=== PATIENT | female | born 1975 | race Caucasian/White ===

== ENCOUNTER → 2017-05-04 | Outpatient (CLI) | payer BC ==
[~2017-05-04] MED LIST: SERT50TA
[2017-05-04 18:13] LABS: URINE APPEARANCE CLEAR (CLEAR); URINE BILIRUBIN NEG (NEG); URINE COLOR YELLOW; URINE NITRITE NEG (NEG); URINE SPECIFIC GRAVITY 1.019 (1.000-1.030); UROBILINOGEN NEG (NEG)
[2017-05-04 18:21] LABS: MANUAL MICROSCOPIC REQUIRED? NO; REVIEW REQ? NO
== END | disposition home or self-care (01) ==
LOC: C.LABSPEC 17:26
PROVIDERS: ATTEND Physician Assistant
DX: N89.8 Other specified noninflammatory disorders of vagina (principal); R39.9 Unspecified symptoms and signs involving the genitourinary system

== ENCOUNTER → 2017-05-24 | Outpatient (CLI) | payer BC | END | disposition home or self-care (01) | LOC: C.PAPS 11:59 | PROVIDERS: ATTEND Physician Assistant | DX: Z01.419 Encounter for gynecological examination (general) (routine) without abnormal findings (principal); R87.616 Satisfactory cervical smear but lacking transformation zone ==

== ENCOUNTER → 2017-06-02 | Outpatient (CLI) | payer BC | END | disposition home or self-care (01) | LOC: C.LABSPEC 17:15 | PROVIDERS: ATTEND Urology | DX: R39.9 Unspecified symptoms and signs involving the genitourinary system (principal) ==

== ENCOUNTER → 2017-06-21 | Outpatient (CLI) | payer OTHER ==
[2017-06-21 17:23] LABS: ALBUMIN 3.7 gm/dl (3.4-5.0); ALT/SGPT 22 U/L (12-78); AST/SGOT 12 U/L (15-37); BLOOD UREA NITROGEN 11 mg/dl (7-18); CALCIUM 8.7 mg/dl (8.5-10.1); CARBON DIOXIDE 27 mmol/L (21-32); GLUCOSE 77 mg/dl (70-99); POTASSIUM 3.7 mmol/L (3.5-5.1); SODIUM 136 mmol/L (136-145)
[2017-06-21 17:26] LABS: ALKALINE PHOSPHATASE 81 U/L (45-117); TOTAL PROTEIN 7.5 gm/dl (6.4-8.2)
== END | disposition home or self-care (01) ==
LOC: C.LAB 16:16
PROVIDERS: ATTEND Urology
DX: R39.9 Unspecified symptoms and signs involving the genitourinary system (principal)

== ENCOUNTER → 2017-06-27 | Outpatient (CLI) | payer OTHER ==
[~2017-06-27] MED LIST changes: +OPTIRAY 320 IV PRN
--- NOTE | 2017-06-27 08:04 | DIAGNOSTIC IMAGING REPORT ---
CT OF THE ABDOMEN AND PELVIS WITH AND WITHOUT CONTRAST HEMATURIA PROTOCOL CLINICAL HISTORY: Hematuria. Urinary symptoms. COMPARISON STUDY: None. TECHNIQUE: Unenhanced and split bolus phase imaging of the abdomen and pelvis was performed. Injection of 119 cc Optiray 320 IV was uneventful. A dose lowering technique was utilized adhering to the principles of ALARA. CT DOSE: 1263.44 mGycm FINDINGS: Liver morphology is normal. Note is made of a 1.3 cm right hepatic lobe cyst. Subcentimeter hepatic lesions are too small to characterize but likely reflect cysts as well. The spleen, adrenal glands and pancreas are normal. There is no biliary or pancreatic ductal dilatation. There is a splenule. Caliber and wall thickness of small and large bowel are normal. There are numerous small bilateral renal calculi that measure up to 4 mm, more numerous on the left. There is no hydronephrosis. The course of the ureters is difficult to follow on this exam but pelvic calcifications likely reflect phleboliths. No definite ureteral calculi are identified. No bladder abnormality is identified although evaluation is suboptimal given suboptimal distention of the bladder. A 2 cm cyst within the upper pole of the right kidney is noted. There are several subcentimeter bilateral renal lesions which likely reflect cysts as well. There is no abdominal or pelvic lymphadenopathy. A rim-enhancing left adnexal lesion measuring 2 cm likely reflects a corpus luteal cyst. A small amount of fluid within the pelvis. There is no lymphadenopathy. No suspicious osseous lesions are identified. IMPRESSION: 1. Bilateral nephrolithiasis. No ureteral calculi or hydronephrosis. 2. No upper tract urothelial lesions. 3. Several renal cysts. 4. 2 cm rim-enhancing left adnexal lesion which likely reflects a corpus luteal cyst. Small amount of fluid within the pelvis. Electronically signed by: Earl Chaves M.D. 06/27/2017 8:02 AM Dictated Date/Time: 06/27/2017 7:22 AM
== END | disposition home or self-care (01) ==
LOC: C.CTS 06:42
PROVIDERS: ATTEND Urology
DX: R31.29 Other microscopic hematuria (principal); R39.9 Unspecified symptoms and signs involving the genitourinary system

== ENCOUNTER → 2018-01-10 | Outpatient (CLI) | payer OTHER ==
[~2018-01-10] MED LIST changes: -OPTIRAY 320 IV PRN
--- NOTE | 2018-01-10 14:44 | DIAGNOSTIC IMAGING REPORT ---
[facility] CLINICAL HISTORY: KIDNEY STONES COMPARISON STUDY: CT scan dated 06/27/2017 FINDINGS: The renal shadows are partially obscured by overlying bowel gas and fecal material. Multiple granular calcifications project over the left kidney consistent with calculi. Pelvic basin calcifications while nonspecific likely represent phleboliths. There is no pathologic bowel dilatation. IMPRESSION: Left-sided nephrolithiasis. The previously described right renal calculi are not definitively visualized on conventional radiographic imaging Electronically signed by: Marcel Copeland M.D. 01/10/2018 2:42 PM Dictated Date/Time: 01/10/2018 2:41 PM
== END | disposition home or self-care (01) ==
LOC: C.RADBC 13:13
PROVIDERS: ATTEND Urology
DX: N20.0 Calculus of kidney (principal)

== ENCOUNTER 2022-10-03 14:44 | Observation (INO) ==
[2022-10-03 15:42] LABS: Alanine Aminotransferase 21 U/L (7-52); BUN Creatinine Ratio 15.2 (10-20); Bilirubin,Total 0.5 mg/dl (0.2-1.0); Blood Urea Nitrogen 12 mg/dl (6-23); Calcium 9.4 mg/dl (8.6-10.3); Carbon Dioxide 27 mmol/L (21-32); Chloride 106 mmol/L (98-107); Creatinine Clr Calc Pharmacy 75.2 ml/min; Est GFR (African American) 102.6 ml/min; Est GFR (Non-African American) 88.5 ml/min; Glucose 99 mg/dl (70-99(Fasting)); Total Protein 7.5 gm/dl (6.0-8.3); Troponin I High Sensitivity 2.7 pg/ml (0-14)
--- NOTE | 2022-10-03 17:36 | XRay Report ---
XR chest 1V not portable HISTORY: 47 years-old Female Chest pain, nonspecific acute chest pain with shortness of breath COMPARISON: Chest radiograph 02/02/2022 TECHNIQUE: AP view of the chest FINDINGS: Left breast biopsy clip. Cardiomediastinal and hilar silhouettes are within normal limits. No pneumot horax, pleural effusion, airspace consolidation or pulmonary edema. Bones appear grossly intact. IMPRESSION: No acute process. ACT 112: Negative or not required by law. The above report was generated using voice recognition software. It may contain grammatical, syntax o r spelling errors. Electronically signed by: Jose Casanova M.D. 10/03/2022 5:35 PM
[2022-10-03 17:48] LABS: Partial Thromboplastin Ratio 0.9; Partial Thromboplastin Time 25.1 Seconds (21.0-31.0); Prothrombin Time 10.9 Seconds (9.0-12.0)
[2022-10-03 17:53] LABS: Albumin Globulin Ratio 1.5 (0.9-2); Albumin Level 4.5 gm/dl (3.4-5.0); Alkaline Phosphatase 58 U/L (34-104); Globulin 3.1 gm/dl (2.5-4.0); Sodium 139 mmol/L (136-145); Total Protein 7.6 gm/dl (6.0-8.3)
--- NOTE | 2022-10-03 17:56 | Electrocardiogram Report ---
Test Reason : Blood Pressure : / mmHG Vent. Rate : 093 BPM Atrial Rate : 093 BPM P-R Int : 134 ms QRS Dur : 072 ms QT Int : 330 ms P-R-T Axes : 061 045 055 degrees QTc Int : 410 ms Normal sinus rhythm Nonspecific ST abnormality Abnormal ECG When compared with ECG of 02-FEB-2022 22:23, No significant change was found Confirmed by Alessandro Patten ([id number]) on 10/03/2022 5:56:19 PM Referred By: Confirmed By:Tom Patten
[2022-10-03 18:00] LABS: Basophils # (auto) 0.04 K/uL (0-0.2); Basophils % (auto) 0.5 %; Eosinophils # (auto) 0.11 K/uL (0-0.50); Eosinophils % (auto) 1.4 %; Hematocrit (blood only) 44.6 % (37.0-47.0); Hemoglobin 14.8 g/dl (12.0-16.0); Immature Granulocytes # (auto) 0.02 K/uL (0.01-0.20); Immature Granulocytes % (auto) 0.3 %; Lymphocytes # (auto) 1.55 K/uL (1.2-3.4); Lymphocytes % (auto) 20.2 %; Mean Corpuscular Hemoglobin 30.8 pg (25.0-34.0); Mean Corpuscular Hgb Conc 33.2 g/dL (32.0-36.0); Mean Corpuscular Volume 92.7 fL (80.0-100.0); Mean Platelet Volume 9.9 fL (9.4-12.4); Monocytes # (auto) 0.57 K/uL (0.11-0.59); Monocytes % (auto) 7.4 %; Neutrophils # (auto) 5.38 K/uL (1.40-6.50); Neutrophils % (auto) 70.2 %; Platelet Count 281 K/uL (130-400); RDW Coefficient of Variation 11.8 % (11.5-14.5); RDW Standard Deviation 39.8 fL (36.4-46.3); Red Blood Count 4.81 M/uL (4.20-5.40); White Blood Count 7.67 K/ul (4.8-10.8)
--- NOTE | 2022-10-03 18:00 | Emergency Department Note ---
History of Present Illness General Chief complaint: Arrhythmia/Palpitations Stated complaint: CHEST TIGHTNESS,HEART PALPITATIONS,LIGHTHEADED Time Seen by Provider: 10/03/22 17:41 Source: patient, family ( who is at the bedside), RN notes reviewed and old records reviewed Mode of arrival: ambulatory Limitations: no limitations History of Present Illness Maximum Pain Intensity: 6 This patient is a 47-year-old female who comes in after having chest pain. She said is been going on since around 3:00 in the morning he said it comes and goes but was there all day persistently she describes as a tightness. No radiation. She felt a little lightheaded no shortness of breath no pain with movement or palpation. No nausea vomiting out to makes it better or worse no fall or trauma. No blood or melena stool. She said over the last couple days her hearts been irregular at times she does have a fitness watch and said has been up to 100. No history of similar. She has not had no significant stress lately. No fever or chills. Home Medications Medication Instructions Recorded Confirmed Type acetaminophen 325 mg capsule 325 mg PO .TAKE CAPSULE PRN PRN 01/06/22 10/03/22 History (Tylenol) Pain ibuprofen 200 mg tablet (Advil) 200 mg PO QID PRN Pain 01/06/22 10/03/22 History cholecalciferol (vitamin D3) 25 25 mcg PO QAM 03/11/22 10/03/22 History mcg (1,000 unit) chewable tablet (Vitamin D3) ferrous sulfate 325 mg (65 mg 325 mg PO QAM 03/11/22 10/03/22 History iron) tablet omega 8-hur-wal-fish oil 1,000 mg 1 cap PO QAM 03/11/22 10/03/22 History (120 mg-180 mg) capsule (Fish Oil) vitamin B complex 1 tab PO QAM 03/11/22 10/03/22 History oxybutynin chloride 5 mg 5 mg PO DAILY #7 tabs 08/09/22 10/03/22 Rx tablet,extended release 24 hr (Ditropan XL) tamsulosin 0.4 mg capsule (Flomax) 0.4 mg PO DAILY #7 caps 08/09/22 10/03/22 Rx oxycodone 5 mg tablet 5 mg PO Q6H PRN pain #10 tabs 08/17/22 10/03/22 Rx buspirone 7.5 mg tablet 7.5 mg PO BID 10/03/22 10/03/22 History Allergies Allergy/AdvReac Type Severity Reaction Status Date / Time No Known Allergies Allergy Unknown Verified 10/03/22 19:16 Past Med/Surg History Medical History High cholesterol no meds History of COVID-19 October 21, 2021 > home test > fever, sore throat, aches > thinks neuropathy in feet is residual effect, no other issues Low iron Migraines Nephrolithiasis present Neuropathy feet Surgical History History of breast biopsy benign History of colonoscopy with polypectomy History of dilatation and curettage 03/18/2022 @ [facility] Hx of L[place] teeth extracted Family History Father Prostate cancer Cardiac disorder Hypercholesteremia Hypertension Heart disease Colorectal cancer Mother Osteoporosis Denies family history of Ovarian cancer Breast cancer Social History Smoking Status: Never smoker Second Hand Exposure: No; Hx Alcohol Use: Yes Alcohol type: wine and hard liquor Hx Substance Use: No Preferred Language: Malaysian Communication Ability: Effective Pharmaceutical Scientist Required: No Beliefs That Will Affect Care: None marital status: Current Living Situation: Spouse current occupational status: employed Feels Safe at Home: Yes Assistive Devices: None Review of Systems A total of 10 systems reviewed and were otherwise negative Physical Exam Vital Signs Vital Signs - 24 hr 10/03/22 14:44 10/03/22 17:00 10/03/22 17:09 Temperature 36.5 C Temperature Source Temporal Artery Scan Pulse Rate 102 H 81 Pulse Rate [Left Finger] 87 Pulse Rhythm [Left Finger] Regular Pulse Strength [Left Finger] Normal Respiratory Rate 20 20 Respiratory Effort / Characteristics Non-Labored Spontaneous Non-Labored Spontaneous Respiratory Depth Normal Normal Respiratory Pattern Regular Blood Pressure 158/91 H Blood Pressure [Left Arm] 143/84 H Blood Pressure Mean 113 Blood Pressure Mean [Left Arm] 103 Blood Pressure Position [Left Arm] Sitting Pulse Oximetry 95 97 Oxygen Delivery Method Room Air Room Air Sepsis New/Unexplained Change in Mental Status No Sepsis Action Taken by Nursing No Action Required 10/03/22 19:55 10/03/22 22:00 10/03/22 20:53 Temperature Temperature Source Pulse Rate 78 Pulse Rate [Left Finger] 79 82 Pulse Rhythm [Left Finger] Pulse Strength [Left Finger] Respiratory Rate 18 18 Respiratory Effort / Characteristics Respiratory Depth Respiratory Pattern Blood Pressure Blood Pressure [Left Arm] 119/80 122/79 Blood Pressure Mean Blood Pressure Mean [Left Arm] 93 93 Blood Pressure Position [Left Arm] Pulse Oximetry 96 96 Oxygen Delivery Method Room Air Room Air Sepsis New/Unexplained Change in Mental Status Sepsis Action Taken by Nursing General: Well developed well nourished [id number] middle-age female who in no acute distress, breathing comfortably on room air. Normal speech HEENT: Normal cephalic atraumatic. Pupils are equal round and reactive to li ght. Extraocular movements are intact. Oropharynx is pink with moist mucous membranes. No swelling of the mouth lips or tongue. Neck: Supple with a midline trachea. No meningeal signs or stiffness, no JVD or bruits. No Stridor. Chest: Clear to auscultation bilaterally. No wheezes or rhonchi. No increased work of breathing. Heart: Regular rate and rhythm without murmurs or gallops. Abdomen: Soft nontender, nondistended without rebound guarding or rigidity. Extremities: No cyanosis clubbing or edema. No calf tenderness or assymetry Spine/Back. Non tender to palpation. No CVA tenderness Skin: Good turgor without rashes. Neurologic exam: Cranial nerves two through 12 are intact. Motor and sensation are intact and symmetrical throughout. Procedures Free Text Procedures The patient was placed in observation status at 1845 on 10/03/22 for chest pain during the time in observation, the patient was frequently reassessed and received EKG x2, continuous more cardiac monitoring troponin on Final reassessment the patient had 2 nonischemic EKGs and 2 negative troponins but was still having chest pain she and she does have family history. I did consult the hospitalist for inpatient admission/observation. A total observation time of 3 hours and 47 minutes. Course Administered Medications Discontinued Medications Acetaminophen (Acetaminophen 500 Mg Tab) 1,000 mg PO NOW STA Stop: 10/03/22 22:38 Last Admin: 10/03/22 22:54 Dose: 1,000 mg Documented By: ELISA Al Hydrox/Mg Hydrox/Simethicone (Gi Cocktail Ed Use) 1 dose PO ONE ONE Stop: 10/03/22 22:38 Last Admin: 10/03/22 22:54 Dose: 1 dose Documented By: ELISA Aspirin (Aspirin 81 Mg Chew) 324 mg PO NOW STA Stop: 10/03/22 21:28 Last Admin: 10/03/22 21:50 Dose: 324 mg Documented By: ELISA Medical Decision Making Differential Diagnosis Acute coronary syndrome, arrhythmia, pneumothorax, electrolyte or metabolic abnormality, pulmonary vascular disease, infection, anxiety Medical Records Attestation: I reviewed the patient's medical records. Home Medications Current Medication List: was personally reviewed by me Laboratory Data 10/03/22 17:04 10/03/22 17:04 Lab Results 10/03/22 10/03/22 10/03/22 Range/Units 15:00 15:00 15:00 WBC Cancelled RBC Cancelled Hgb Cancelled Hct Cancelled MCV Cancelled MCH Cancelled MCHC Cancelled RDW Std Deviation Cancelled RDW Coeff of Paulette Cancelled Plt Count Cancelled MPV Cancelled Immature Gran % (Auto) Cancelled Neut % (Auto) Cancelled Lymph % (Auto) Cancelled [place] % (Auto) Cancelled Eos % (Auto) Cancelled Baso % (Auto) Cancelled Neut # (Auto) Cancelled Lymph # (Auto) Cancelled [place] # (Auto) Cancelled Eos # (Auto) Cancelled Baso # (Auto) Cancelled Immature Gran # (Auto) Cancelled Absolute Nucleated RBC Cancelled Nucleated RBC % (auto) Cancelled Neutrophils % (Manual) Cancelled Band Neutrophils % Cancelled Lymphocytes % (Manual) Cancelled Prolymphocyte % Cancelled Reactive Lymphs % (Man) Cancelled Monocytes % (Manual) Cancelled Eosinophils % (Manual) Cancelled Basophils % (Manual) Cancelled Metamyelocytes % (Man) Cancelled Myelocytes % (Man) Cancelled Promyelocytes % (Man) Cancelled Blast Cells % (Manual) Cancelled Plasma Cell % (Manual) Cancelled Other Cells % Cancelled Nucleated RBC % Cancelled Neutrophils # (Manual) Cancelled Band Neutrophils # Cancelled Total Absolute Neuts Cancelled Lymphocytes # (Manual) Cancelled Prolymphocyte # Cancelled Reactive Lymphs # Cancelled Total Abs Lymphocytes Cancelled Monocytes # (Manual) Cancelled Eosinophils # (Manual) Cancelled Basophils # (Manual) Cancelled Metamyelocytes # (Man) Cancelled Myelocytes # (Manual) Cancelled Promyelocytes # (Man) Cancelled Blast Cells # (Man) Cancelled Plasma Cell # (Manual) Cancelled Other Cells # Cancelled Nucleated RBCs # (Man) Cancelled Hypersegmented Neuts Cancelled Hyposegmented Neuts Cancelled Hypogranular Neuts Cancelled Large Granular Lymphs Cancelled # Lrg Granular Lymphs Cancelled Hairy Cells Cancelled Smudge Cells Cancelled Toxic Granulation Cancelled Toxic Vacuolation Cancelled Dohle Bodies Cancelled Jessica Rods Cancelled Platelet Estimate Cancelled Hypogranular Platelets Cancelled Giant Platelets Cancelled Platelet Satelliting Cancelled RBC Morphology Cancelled Polychromasia Cancelled Hypochromasia Cancelled Poikilocytosis Cancelled Basophilic Stippling Cancelled Anisocytosis Cancelled Microcytosis Cancelled Macrocytosis Cancelled Spherocytes Cancelled Pappenheimer Bodies Cancelled Sickle Cells Cancelled Target Cells Cancelled Tear Drop Cells Cancelled Ovalocytes Cancelled Stomatocytes Cancelled Jimenez-Maricao Bodies Cancelled Echinocytes Cancelled Acanthocytes (Spur) Cancelled Rouleaux Cancelled RBC Agglutinates Cancelled Schistocytes Cancelled Sezary Cell Cancelled PT Cancelled INR Cancelled APTT Cancelled PTT Ratio Cancelled D-Dimer Sodium TNP Potassium TNP Chloride 106 (98-107) mmol/L Carbon Dioxide 27 (21-32) mmol/L Anion Gap TNP BUN 12 (6-23) mg/dl Creatinine 0.79 (0.6-1.2) mg/dl Est Cr Clr Drug Dosing 75.2 ml/min Est GFR ( Amer) 102.6 ml/min Est GFR (Non-Af Amer) 88.5 ml/min BUN/Creatinine Ratio 15.2 (10-20) Glucose 99 (70-99(Fasting)) mg/dl Calcium 9.4 (8.6-10.3) mg/dl Magnesium (1.7-2.4) mg/dl Total Bilirubin 0.5 (0.2-1.0) mg/dl AST TNP ALT 21 (7-52) U/L Alkaline Phosphatase TNP Troponin I High Sens 2.7 (0-14) pg/ml Total Protein 7.5 (6.0-8.3) gm/dl Albumin TNP Globulin TNP Albumin/Globulin Ratio TNP TSH (0.300-4.500) uIu/ml Blood Parasites ID Cancelled 10/03/22 10/03/22 10/03/22 Range/Units 15:00 17:04 17:04 WBC RBC Hgb Hct MCV MCH MCHC RDW Std Deviation RDW Coeff of Paulette Plt Count MPV Immature Gran % (Auto) Neut % (Auto) Lymph % (Auto) [place] % (Auto) Eos % (Auto) Baso % (Auto) Neut # (Auto) Lymph # (Auto) [place] # (Auto) Eos # (Auto) Baso # (Auto) Immature Gran # (Auto) Absolute Nucleated RBC Nucleated RBC % (auto) Neutrophils % (Manual) Band Neutrophils % Lymphocytes % (Manual) Prolymphocyte % Reactive Lymphs % (Man) Monocytes % (Manual) Eosinophils % (Manual) Basophils % (Manual) Metamyelocytes % (Man) Myelocytes % (Man) Promyelocytes % (Man) Blast Cells % (Manual) Plasma Cell % (Manual) Other Cells % Nucleated RBC % Neutrophils # (Manual) Band Neutrophils # Total Absolute Neuts Lymphocytes # (Manual) Prolymphocyte # Reactive Lymphs # Total Abs Lymphocytes Monocytes # (Manual) Eosinophils # (Manual) Basophils # (Manual) Metamyelocytes # (Man) Myelocytes # (Manual) Promyelocytes # (Man) Blast Cells # (Man) Plasma Cell # (Manual) Other Cells # Nucleated RBCs # (Man) Hypersegmented Neuts Hyposegmented Neuts Hypogranular Neuts Large Granular Lymphs # Lrg Granular Lymphs Hairy Cells Smudge Cells Toxic Granulation Toxic Vacuolation Dohle Bodies Jessica Rods Platelet Estimate Hypogranular Platelets Giant Platelets Platelet Satelliting RBC Morphology Polychromasia Hypochromasia Poikilocytosis Basophilic Stippling Anisocytosis Microcytosis Macrocytosis Spherocytes Pappenheimer Bodies Sickle Cells Target Cells Tear Drop Cells Ovalocytes Stomatocytes Jimenez-Maricao Bodies Echinocytes Acanthocytes (Spur) Rouleaux RBC Agglutinates Schistocytes Sezary Cell PT 10.9 INR 1.0 APTT 25.1 PTT Ratio 0.9 D-Dimer Sodium 139 Potassium TNP Chloride (98-107) mmol/L Carbon Dioxide (21-32) mmol/L Anion Gap BUN (6-23) mg/dl Creatinine (0.6-1.2) mg/dl Est Cr Clr Drug Dosing ml/min Est GFR ( Amer) ml/min Est GFR (Non-Af Amer) ml/min BUN/Creatinine Ratio (10-20) Glucose (70-99(Fasting)) mg/dl Calcium (8.6-10.3) mg/dl Magnesium (1.7-2.4) mg/dl Total Bilirubin (0.2-1.0) mg/dl AST TNP ALT (7-52) U/L Alkaline Phosphatase 58 Troponin I High Sens (0-14) pg/ml Total Protein 7.6 (6.0-8.3) gm/dl Albumin 4.5 Globulin 3.1 Albumin/Globulin Ratio 1.5 TSH 1.081 (0.300-4.500) uIu/ml Blood Parasites ID 10/03/22 10/03/22 10/03/22 Range/Units 17:04 18:45 21:53 WBC 7.67 RBC 4.81 Hgb 14.8 Hct 44.6 MCV 92.7 MCH 30.8 MCHC 33.2 RDW Std Deviation 39.8 RDW Coeff of Paulette 11.8 Plt Count 281 MPV 9.9 Immature Gran % (Auto) 0.3 Neut % (Auto) 70.2 Lymph % (Auto) 20.2 [place] % (Auto) 7.4 Eos % (Auto) 1.4 Baso % (Auto) 0.5 Neut # (Auto) 5.38 Lymph # (Auto) 1.55 [place] # (Auto) 0.57 Eos # (Auto) 0.11 Baso # (Auto) 0.04 Immature Gran # (Auto) 0.02 Absolute Nucleated RBC Nucleated RBC % (auto) Neutrophils % (Manual) Band Neutrophils % Lymphocytes % (Manual) Prolymphocyte % Reactive Lymphs % (Man) Monocytes % (Manual) Eosinophils % (Manual) Basophils % (Manual) Metamyelocytes % (Man) Myelocytes % (Man) Promyelocytes % (Man) Blast Cells % (Manual) Plasma Cell % (Manual) Other Cells % Nucleated RBC % Neutrophils # (Manual) Band Neutrophils # Total Absolute Neuts Lymphocytes # (Manual) Prolymphocyte # Reactive Lymphs # Total Abs Lymphocytes Monocytes # (Manual) Eosinophils # (Manual) Basophils # (Manual) Metamyelocytes # (Man) Myelocytes # (Manual) Promyelocytes # (Man) Blast Cells # (Man) Plasma Cell # (Manual) Other Cells # Nucleated RBCs # (Man) Hypersegmented Neuts Hyposegmented Neuts Hypogranular Neuts Large Granular Lymphs # Lrg Granular Lymphs Hairy Cells Smudge Cells Toxic Granulation Toxic Vacuolation Dohle Bodies Jessica Rods Platelet Estimate Hypogranular Platelets Giant Platelets Platelet Satelliting RBC Morphology Polychromasia Hypochromasia Poikilocytosis Basophilic Stippling Anisocytosis Microcytosis Macrocytosis Spherocytes Pappenheimer Bodies Sickle Cells Target Cells Tear Drop Cells Ovalocytes Stomatocytes Jimenez-Maricao Bodies Echinocytes Acanthocytes (Spur) Rouleaux RBC Agglutinates Schistocytes Sezary Cell PT INR APTT PTT Ratio D-Dimer Cancelled Sodium Potassium 3.7 Chloride (98-107) mmol/L Carbon Dioxide (21-32) mmol/L Anion Gap BUN (6-23) mg/dl Creatinine (0.6-1.2) mg/dl Est Cr Clr Drug Dosing ml/min Est GFR ( Amer) ml/min Est GFR (Non-Af Amer) ml/min BUN/Creatinine Ratio (10-20) Glucose (70-99(Fasting)) mg/dl Calcium (8.6-10.3) mg/dl Magnesium 2.0 (1.7-2.4) mg/dl Total Bilirubin (0.2-1.0) mg/dl AST 14 ALT (7-52) U/L Alkaline Phosphatase Troponin I High Sens 2.8 (0-14) pg/ml Total Protein (6.0-8.3) gm/dl Albumin Globulin Albumin/Globulin Ratio TSH (0.300-4.500) uIu/ml Blood Parasites ID Imaging Data Attestation: I personally reviewed and interpreted this imaging study as follows: My Impression: Chest x-rayno acute infiltrate, failure, pneumothorax seen Radiologist's Impression: Chest X-Ray 10/03/22 14:50 XR chest 1V not portable HISTORY: 47 years-old Female Chest pain, nonspecific acute chest pain with shortness of breath COMPARISON: Chest radiograph 02/02/2022 TECHNIQUE: AP view of the chest FINDINGS: Left breast biopsy clip. Cardiomediastinal and hilar silhouettes are within normal limits. No pneumothorax, pleural effusion, airspace consolidation or pulmonary edema. Bones appear grossly intact. IMPRESSION: No acute process. ACT 112: Negative or not required by law. The above report was generated using voice recognition software. It may contain grammatical, syntax or spelling errors. Electronically signed by: Jose Casanova M.D. 10/03/2022 5:35 PM ECG Data Attestation: I personally reviewed and interpreted this ECG as follows: Indication: + chest pain Rate (beats per minute): 93 Rhythm: + normal sinus ECG Intervals/blocks: + Normal QRS and + Normal QT ECG [place]: + Normal ECG ST segments: + Nonspecific ST abnormalities ECG Findings: no PACs or no PVCs Comparison ECG Date: from (02/02/22) Change: no significant change Additional Comments: EKG #2: Normal sinus rhythm with a rate of 75 no acute ischemic changes no significant change compared EKG #1. MDM Narrative This patient is a 47-year-old female comes in after having chest pain since earlier today. She does have a history of increased cholesterol and her father had a CABG however not prematurely. Her symptoms have gone all day and despite that she has normal troponin and her EKG shows no definite ischemic changes. She was placed in cardiac observation/ED observation. IV access was established and blood work was obtained. Chest x-ray shows no acute infiltrate, failure, pneumothorax. The patient had 2 nonischemic EKGs and no significant arrhythmias while in the ED she had 2 negative troponins the rest of her labs were essentially unremarkable. She seems to be doing better however when I checked on her she says she still does not feel well she feels like she is a fullness in her chest she has no GI symptoms, I did give her an aspirin. I do think she should have further work-up potentially as an inpatient of consult with Dr. Chnio who will be admitting/observing her I also added a D-dimer and COVID test ed her as well. She was initially tachycardic but it did slow down to normal sinus rhythm while she was here Continuous cardiac monitoring: Orders placed in EMR for continuous cardiac monitoring: Upon my interpretation, she was noted to be in normal sinus rhythm with a rate of 90 Impression & Plan Chest pain, Lab test negative for COVID-19 virus, Family history of coronary artery disease, Palpitations Discharge Plan Visit Data Chief Complaint: Arrhythmia/Palpitations Stated Complaint: CHEST TIGHTNESS,HEART PALPITATIONS,LIGHTHEADED ED Provider: Raji Jovel Discharge Problem: Chest pain, Lab test negative for COVID-19 virus, Family history of coronary artery disease, Palpitations Forms Stand Alone Forms: [facility] Prescriptions Prescriptions: No Action acetaminophen [Tylenol] 325 mg capsule 325 mg PO .TAKE CAPSULE PRN PRN (Reason: Pain) ibuprofen [Advil] 200 mg tablet 200 mg PO QID PRN (Reason: Pain) vitamin B complex Tablet Extended Release 1 tab PO QAM ferrous sulfate 325 mg (65 mg iron) Tablet 325 mg PO QAM cholecalciferol (vitamin D3) [Vitamin D3] 25 mcg (1,000 unit) Tablet,Chewable 25 mcg PO QAM omega 1-dug-pge-fish oil [Fish Oil] 1,000 mg (120 mg-180 mg) Capsule 1 cap PO QAM tamsulosin [Flomax] 0.4 mg capsule 0.4 mg PO DAILY Qty: 7 0RF oxybutynin chloride [Ditropan XL] 5 mg tablet extended release 24hr 5 mg PO DAILY Qty: 7 0RF oxycodone 5 mg tablet 5 mg PO Q6H PRN (Reason: pain) Qty: 10 0RF buspirone 7.5 mg tablet 7.5 mg PO BID Referrals Referrals: Sana Amato DO [Primary Care Provider] -
[2022-10-03 19:24] LABS: Potassium 3.7 mmol/L (3.5-5.1)
[2022-10-03 19:31] LABS: Troponin I High Sensitivity 2.8 pg/ml (0-14)
[2022-10-03] MEDS ORDERED: ASPIRIN 81 MG CHEW PO STA (21:27)
[2022-10-03] MEDS ORDERED: GI COCKTAIL ED USE PO ONE (22:37)
[2022-10-03] MEDS ORDERED: ACETAMINOPHEN 500 MG TAB PO STA (22:37)
--- NOTE | 2022-10-03 22:50 | History & Physical Report ---
Date of Service October 03, 2022 Assessment & Plan (1) Chest pain: Plan: 47yo female with history of HLP presenting with substernal chest discomfort and palpitations. No known CAD or arrhythmia. Troponin x 2 unremarkable. EKG with no acute ischemic changes. Electrolytes within normal limits. TSH and Magnesium PENDING. Do not strongly suspect ACS or cardiac etiology at this time. Patient voices frustration with the duration of her symptoms and is apprehensive about returning home to continue an outpatient workup. -Observation to medical with telemetry -Check TSH and Magnesium -Check 2D echo in AM -GI Cocktail x 1 -Tylenol PRN pain (2) Palpitations: Plan: Etiology unclear. Patient in NSR on EKG x 2. Ectopic beats appreciated on physical exam. -Telemetry monitoring -Monitor electrolytes -Check 2D echo F/E/N- Heplock. Electrolytes WNL. Regular diet as tolerated Ppx - Low risk for DVT Code - Full Dispo - Observation to medical with telemetry History of Present Illness Chief Complaint: Palpitations and chest tightness Primary Care Provider: DO Jaylyn Cheema Luis Armando is a 47-year-old female with history of hyperlipidemia, low iron, migraines presenting with 1 day of substernal chest tightness and palpitations. Patient reports feeling intermittent palpitations in the past but they have never been very bothersome. Over the last several days she has had difficulty falling asleep. She also notes that her resting heart rate has been higher than usual (in the 70s to 90s rather than the 60s. This is per her wrist monitor). This morning 10/03/2022 patient woke from sleep with substernal chest discomfort. She also reports feeling more intense palpitations at that time. The chest tightness has occurred intermittently throughout the day. It is substernal with radiation through to her back. She has had occasional lightheadedness. No radiation to the arm or jaw. No shortness of breath, diaphoresis, nausea, syncope. Patient reports she is not very active at baseline. She walks in her neighborhood several times per week. She is able to climb stairs without difficulty. She denies exertional symptoms of chest pain or dyspnea. She has no known cardiac disease. No history of arrhythmia. She has never had a stress test or cardiac catheterization. In the ER she is afebrile, hemodynamically stable. Heart rate = 82, normal sinus ER course: Aspirin 324 mg GI cocktail ordered (not yet given) Tylenol 1 g ordered (not yet given) Allergies Allergy/AdvReac Type Severity Reaction Status Date / Time No Known Allergies Allergy Unknown Verified 10/03/22 19:16 Home Medications Medication Instructions Recorded Confirmed Type acetaminophen 325 mg capsule 325 mg PO .TAKE CAPSULE PRN PRN 01/06/22 10/03/22 History (Tylenol) Pain ibuprofen 200 mg tablet (Advil) 200 mg PO QID PRN Pain 01/06/22 10/03/22 History cholecalciferol (vitamin D3) 25 25 mcg PO QAM 03/11/22 10/03/22 History mcg (1,000 unit) chewable tablet (Vitamin D3) ferrous sulfate 325 mg (65 mg 325 mg PO QAM 03/11/22 10/03/22 History iron) tablet omega 8-bif-xro-fish oil 1,000 mg 1 cap PO QAM 03/11/22 10/03/22 History (120 mg-180 mg) capsule (Fish Oil) vitamin B complex 1 tab PO QAM 03/11/22 10/03/22 History oxybutynin chloride 5 mg 5 mg PO DAILY #7 tabs 08/09/22 10/03/22 Rx tablet,extended release 24 hr (Ditropan XL) tamsulosin 0.4 mg capsule (Flomax) 0.4 mg PO DAILY #7 caps 08/09/22 10/03/22 Rx oxycodone 5 mg tablet 5 mg PO Q6H PRN pain #10 tabs 08/17/22 10/03/22 Rx buspirone 7.5 mg tablet 7.5 mg PO BID 10/03/22 10/03/22 History Past Med/Surg History Medical History High cholesterol no meds History of COVID-19 October 21, 2021 > home test > fever, sore throat, aches > thinks neuropathy in feet is residual effect, no other issues Low iron Migraines Nephrolithiasis present Neuropathy feet Surgical History History of breast biopsy benign History of colonoscopy with polypectomy History of dilatation and curettage 03/18/2022 @ [facility] Hx of LASIK [place] teeth extracted Family History Father Prostate cancer Cardiac disorder Hypercholesteremia Hypertension Heart disease Colorectal cancer Mother Osteoporosis Denies family history of Ovarian cancer Breast cancer Social History Smoking Status: Never smoker Second Hand Exposure: No; Hx Alcohol Use: Yes Alcohol type: wine and hard liquor Hx Substance Use: No Preferred Language: Kazakh Communication Ability: Effective Set O Type Operator Required: No Beliefs That Will Affect Care: None marital status: Current Living Situation: Spouse current occupational status: employed Feels Safe at Home: Yes Assistive Devices: None Review of Systems Review of Systems: All systems reviewed & are unremarkable except as noted in HPI & below Physical Exam Physical Exam: General: patient resting comfortably, NAD, non-toxic in appearance, AA&O x 4, Anxious in appearance Skin: warm, dry, intact, no rashes or lesions HEENT: NC/AT, PERRL, EOMI, anicteric sclera, conjunctiva without injection, external ear normal to inspection and nontender, nares patent, moist mucus membranes, dentition intact, no oropharyngeal lesions, neck supple, trachea midline, no LAD, no thyromegaly, no JVD Heart: +S1/S2, regular with occasional ectopy, no m/r/g, no reproducible chest wall pain Lungs: equal air entry bilaterally, no rales/rhonchi/wheezes Abd: +BS, soft, NT/ND, no masses/organomegaly/ascites Ext: warm, 2+ pulses in UE/LE bilaterally, no clubbing/cyanosis or edema Neuro: nonfocal, patient AA&O x 4, speech intact, no facial droop, moving all extremities on command with equal strength 5/5 Results & Data Results & Data Vital Signs (Past 12 Hours) Vital Signs Temp Pulse Pulse Resp BP BP Pulse Ox 10/03/22 20:53 78 10/03/22 22:00 82 18 122/79 96 10/03/22 19:55 79 18 119/80 96 10/03/22 17:09 81 10/03/22 17:00 87 20 143/84 H 97 10/03/22 14:44 36.5 C 102 H 20 158/91 H 95 O2 Del Method 10/03/22 20:53 10/03/22 22:00 Room Air 10/03/22 19:55 Room Air 10/03/22 17:09 10/03/22 17:00 Room Air 10/03/22 14:44 Room Air Laboratory Results Laboratory Results WBC 7.67 K/ul (4.8-10.8) 10/03/22 17:04 RBC 4.81 M/uL (4.20-5.40) 10/03/22 17:04 Hgb 14.8 g/dl (12.0-16.0) 10/03/22 17:04 Hct 44.6 % (37.0-47.0) 10/03/22 17:04 MCV 92.7 fL (80.0-100.0) 10/03/22 17:04 MCH 30.8 pg (25.0-34.0) 10/03/22 17:04 MCHC 33.2 g/dL (32.0-36.0) 10/03/22 17:04 RDW Std Deviation 39.8 fL (36.4-46.3) 10/03/22 17:04 RDW Coeff of Paulette 11.8 % (11.5-14.5) 10/03/22 17:04 Plt Count 281 K/uL (130-400) 10/03/22 17:04 MPV 9.9 fL (9.4-12.4) 10/03/22 17:04 Immature Gran % (Auto) 0.3 % 10/03/22 17:04 Neut % (Auto) 70.2 % 10/03/22 17:04 Lymph % (Auto) 20.2 % 10/03/22 17:04 [place] % (Auto) 7.4 % 10/03/22 17:04 Eos % (Auto) 1.4 % 10/03/22 17:04 Baso % (Auto) 0.5 % 10/03/22 17:04 Neut # (Auto) 5.38 K/uL (1.40-6.50) 10/03/22 17:04 Lymph # (Auto) 1.55 K/uL (1.2-3.4) 10/03/22 17:04 [place] # (Auto) 0.57 K/uL (0.11-0.59) 10/03/22 17:04 Eos # (Auto) 0.11 K/uL (0-0.50) 10/03/22 17:04 Baso # (Auto) 0.04 K/uL (0-0.2) 10/03/22 17:04 Immature Gran # (Auto) 0.02 K/uL (0.01-0.20) 10/03/22 17:04 Absolute Nucleated RBC Cancelled 10/03/22 15:00 Nucleated RBC % (auto) Cancelled 10/03/22 15:00 Neutrophils % (Manual) Cancelled 10/03/22 15:00 Band Neutrophils % Cancelled 10/03/22 15:00 Lymphocytes % (Manual) Cancelled 10/03/22 15:00 Prolymphocyte % Cancelled 10/03/22 15:00 Reactive Lymphs % (Man) Cancelled 10/03/22 15:00 Monocytes % (Manual) Cancelled 10/03/22 15:00 Eosinophils % (Manual) Cancelled 10/03/22 15:00 Basophils % (Manual) Cancelled 10/03/22 15:00 Metamyelocytes % (Man) Cancelled 10/03/22 15:00 Myelocytes % (Man) Cancelled 10/03/22 15:00 Promyelocytes % (Man) Cancelled 10/03/22 15:00 Blast Cells % (Manual) Cancelled 10/03/22 15:00 Plasma Cell % (Manual) Cancelled 10/03/22 15:00 Other Cells % Cancelled 10/03/22 15:00 Nucleated RBC % Cancelled 10/03/22 15:00 Neutrophils # (Manual) Cancelled 10/03/22 15:00 Band Neutrophils # Cancelled 10/03/22 15:00 Total Absolute Neuts Cancelled 10/03/22 15:00 Lymphocytes # (Manual) Cancelled 10/03/22 15:00 Prolymphocyte # Cancelled 10/03/22 15:00 Reactive Lymphs # Cancelled 10/03/22 15:00 Total Abs Lymphocytes Cancelled 10/03/22 15:00 Monocytes # (Manual) Cancelled 10/03/22 15:00 Eosinophils # (Manual) Cancelled 10/03/22 15:00 Basophils # (Manual) Cancelled 10/03/22 15:00 Metamyelocytes # (Man) Cancelled 10/03/22 15:00 Myelocytes # (Manual) Cancelled 10/03/22 15:00 Promyelocytes # (Man) Cancelled 10/03/22 15:00 Blast Cells # (Man) Cancelled 10/03/22 15:00 Plasma Cell # (Manual) Cancelled 10/03/22 15:00 Other Cells # Cancelled 10/03/22 15:00 Nucleated RBCs # (Man) Cancelled 10/03/22 15:00 Hypersegmented Neuts Cancelled 10/03/22 15:00 Hyposegmented Neuts Cancelled 10/03/22 15:00 Hypogranular Neuts Cancelled 10/03/22 15:00 Large Granular Lymphs Cancelled 10/03/22 15:00 # Lrg Granular Lymphs Cancelled 10/03/22 15:00 Hairy Cells Cancelled 10/03/22 15:00 Smudge Cells Cancelled 10/03/22 15:00 Toxic Granulation Cancelled 10/03/22 15:00 Toxic Vacuolation Cancelled 10/03/22 15:00 Dohle Bodies Cancelled 10/03/22 15:00 Jessica Rods Cancelled 10/03/22 15:00 Platelet Estimate Cancelled 10/03/22 15:00 Hypogranular Platelets Cancelled 10/03/22 15:00 Giant Platelets Cancelled 10/03/22 15:00 Platelet Satelliting Cancelled 10/03/22 15:00 RBC Morphology Cancelled 10/03/22 15:00 Polychromasia Cancelled 10/03/22 15:00 Hypochromasia Cancelled 10/03/22 15:00 Poikilocytosis Cancelled 10/03/22 15:00 Basophilic Stippling Cancelled 10/03/22 15:00 Anisocytosis Cancelled 10/03/22 15:00 Microcytosis Cancelled 10/03/22 15:00 Macrocytosis Cancelled 10/03/22 15:00 Spherocytes Cancelled 10/03/22 15:00 Pappenheimer Bodies Cancelled 10/03/22 15:00 Sickle Cells Cancelled 10/03/22 15:00 Target Cells Cancelled 10/03/22 15:00 Tear Drop Cells Cancelled 10/03/22 15:00 Ovalocytes Cancelled 10/03/22 15:00 Stomatocytes Cancelled 10/03/22 15:00 [place] Bodies Cancelled 10/03/22 15:00 Echinocytes Cancelled 10/03/22 15:00 Acanthocytes (Spur) Cancelled 10/03/22 15:00 Rouleaux Cancelled 10/03/22 15:00 RBC Agglutinates Cancelled 10/03/22 15:00 Schistocytes Cancelled 10/03/22 15:00 Sezary Cell Cancelled 10/03/22 15:00 PT 10.9 Seconds (9.0-12.0) 10/03/22 17:04 INR 1.0 (0.9-1.1) 10/03/22 17:04 APTT 25.1 Seconds (21.0-31.0) 10/03/22 17:04 PTT Ratio 0.9 10/03/22 17:04 D-Dimer Cancelled 10/03/22 21:53 Sodium 139 mmol/L (136-145) 10/03/22 17:04 Potassium 3.7 mmol/L (3.5-5.1) 10/03/22 18:45 Chloride 106 mmol/L (98-107) 10/03/22 15:00 Carbon Dioxide 27 mmol/L (21-32) 10/03/22 15:00 Anion Gap TNP 10/03/22 15:00 BUN 12 mg/dl (6-23) 10/03/22 15:00 Creatinine 0.79 mg/dl (0.6-1.2) 10/03/22 15:00 Est Cr Clr Drug Dosing 75.2 ml/min 10/03/22 15:00 Est GFR ( Amer) 102.6 ml/min 10/03/22 15:00 Est GFR (Non-Af Amer) 88.5 ml/min 10/03/22 15:00 BUN/Creatinine Ratio 15.2 (10-20) 10/03/22 15:00 Glucose 99 mg/dl (70-99(Fasting)) 10/03/22 15:00 Calcium 9.4 mg/dl (8.6-10.3) 10/03/22 15:00 Total Bilirubin 0.5 mg/dl (0.2-1.0) 10/03/22 15:00 AST 14 U/L (13-39) 10/03/22 18:45 ALT 21 U/L (7-52) 10/03/22 15:00 Alkaline Phosphatase 58 U/L (34-104) 10/03/22 17:04 Troponin I High Sens 2.8 pg/ml (0-14) 10/03/22 18:45 Total Protein 7.6 gm/dl (6.0-8.3) 10/03/22 17:04 Albumin 4.5 gm/dl (3.4-5.0) 10/03/22 17:04 Globulin 3.1 gm/dl (2.5-4.0) 10/03/22 17:04 Albumin/Globulin Ratio 1.5 (0.9-2) 10/03/22 17:04 Blood Parasites ID Cancelled 10/03/22 15:00 Impressions Chest X-Ray 10/03/22 14:50 XR chest 1V not portable HISTORY: 47 years-old Female Chest pain, nonspecific acute chest pain with shortness of breath COMPARISON: Chest radiograph 02/02/2022 TECHNIQUE: AP view of the chest FINDINGS: Left breast biopsy clip. Cardiomediastinal and hilar silhouettes are within normal limits. No pneumothorax, pleural effusion, airspace consolidation or pulmonary edema. Bones appear grossly intact. IMPRESSION: No acute process. ACT 112: Negative or not required by law. The above report was generated using voice recognition software. It may contain grammatical, syntax or spelling errors. Electronically signed by: Jose Casanova M.D. 10/03/2022 5:35 PM ECG Additional Comments: EKG reveals normal sinus rhythm at 75 bpm, FL = 144, QRS = 68, QTc = 402. No acute ischemic changes. PG Care Time/CCT Total # of Minutes Spent Total Time Spent with Patient: Total time spent is greater than 50% in coordination of care (as documented) at patient's floor/unit and/or counseling patient: Coding Level of Care Code 14437 INT INP/OBS CARE 2/55MIN Diagnoses Chest pain R07.9 Palpitations R00.2
[2022-10-03 23:59] LABS: D Dimer < 190 ug/L FEU (0-500)
[2022-10-04 00:01] LABS: Influenza A virus by PCR Negative (Neg); Influenza B virus by PCR Negative (Neg); RSV by PCR Negative (Neg); SARS CoV2 RNA(COVID-19) Ceph NEGATIVE (Negative)
[2022-10-04] MEDS ORDERED: ACETAMINOPHEN 325 MG TAB PO PRN (02:11)
[2022-10-04] MEDS ORDERED: IBUPROFEN 200 MG TAB PO PRN (02:11)
--- NOTE | 2022-10-04 08:03 | Hospitalist Progress Note ---
Date of Service October 04, 2022 Assessment & Plan (1) Chest pain: Plan: 47yo female with history of HLP presenting with substernal chest discomfort and palpitations. No known CAD or arrhythmia. Troponin x 2 unremarkable. EKG with no acute ischemic changes. Electrolytes within normal limits. TSH and Magnesium PENDING. Do not strongly suspect ACS or cardiac etiology at this time. Patient voices frustration with the duration of her symptoms and is apprehensive about returning home to continue an outpatient workup. -Observation to medical with telemetry -Check TSH and Magnesium -Check 2D echo in AM -GI Cocktail x 1 -Tylenol PRN pain (2) Palpitations: Plan: Etiology unclear. Patient in NSR on EKG x 2. Ectopic beats appreciated on physical exam. -Telemetry monitoring -Monitor electrolytes -Check 2D echo F/E/N- Heplock. Electrolytes WNL. Regular diet as tolerated Ppx - Low risk for DVT Code - Full Dispo - Observation to medical with telemetry Admission and Anticipated Discharge Date Admission Date: October 03, 2022 Results & Data Results & Data Vital Signs (Past 12 Hours) Vital Signs Temp Pulse Pulse Resp BP Pulse Ox O2 Del Method 10/04/22 08:01 97.5 F L 70 16 119/77 97 Room Air 10/04/22 07:35 Room Air 10/04/22 07:02 66 10/04/22 04:01 80 10/04/22 02:22 98.2 F 73 18 147/83 H 94 Room Air 10/04/22 01:43 73 10/04/22 01:10 75 20 124/81 97 Room Air 10/04/22 00:04 68 20 123/75 95 Room Air 10/03/22 20:53 78 10/03/22 22:00 82 18 122/79 96 Room Air PG Care Time/CCT Total # of Minutes Spent Total Time Spent with Patient: Total time spent is greater than 50% in coordination of care (as documented) at patient's floor/unit and/or counseling patient: Coding Diagnoses Chest pain R07.2 Chest pain type: precordial pain Palpitations R00.2 (1) Chest pain Chest pain type: precordial pain Qualified Code(s): R07.2 - Precordial pain
[2022-10-04 08:41] LABS: Hematocrit (blood only) 39.8 % (37.0-47.0); Hemoglobin 13.8 g/dl (12.0-16.0); Mean Corpuscular Hgb Conc 34.7 g/dL (32.0-36.0); Mean Corpuscular Volume 89.4 fL (80.0-100.0); Mean Platelet Volume 9.4 fL (9.4-12.4); Platelet Count 247 K/uL (130-400); RDW Coefficient of Variation 11.6 % (11.5-14.5); RDW Standard Deviation 37.5 fL (36.4-46.3); Red Blood Count 4.45 M/uL (4.20-5.40); White Blood Count 6.02 K/ul (4.8-10.8)
[2022-10-04 08:59] LABS: BUN Creatinine Ratio 12.3 (10-20); Calcium 8.9 mg/dl (8.6-10.3); Creatinine Clr Calc Pharmacy 81.4 ml/min; Est GFR (African American) 112.9 ml/min; Est GFR (Non-African American) 97.4 ml/min; Potassium 3.7 mmol/L (3.5-5.1)
[2022-10-04] MEDS ORDERED: TAMSULOSIN HCL 0.4 MG CAP PO SCH (09:00)
[2022-10-04] MEDS ORDERED: busPIRone 7.5 MG TAB PO SCH (09:00)
[2022-10-04] MEDS ORDERED: OXYBUTYNIN CHLORIDE XL 5 MG TABCR PO SCH (09:00)
[2022-10-04 09:05] LABS: Troponin I High Sensitivity 2.8 pg/ml (0-14)
[2022-10-04] MEDS ORDERED: ALUMINUM/MAGNESIUM SUSP 18 ML, LIDOCAINE VISCOUS 2% SOLN 6 ML, BARCODE IDENTIFIER 1 EACH PO ONE (09:30)
--- NOTE | 2022-10-04 09:55 | XCELERA ---
[id number]
--- NOTE | 2022-10-04 10:46 | Electrocardiogram Report ---
Test Reason : Blood Pressure : / mmHG Vent. Rate : 075 BPM Atrial Rate : 075 BPM P-R Int : 144 ms QRS Dur : 068 ms QT Int : 360 ms P-R-T Axes : 041 016 029 degrees QTc Int : 402 ms Poor data quality, interpretation may be adversely affected Normal sinus rhythm Possible Left atrial enlargement Low voltage QRS Borderline ECG When compared with ECG of 03-OCT-2022 14:51, No significant change was found Confirmed by Alessandro Patten ([id number]) on 10/04/2022 10:46:25 AM Referred By: REFERRED SELF Confirmed By:Tom Patten
--- NOTE | 2022-10-04 18:32 | Discharge Summary ---
Date of Service October 04, 2022 Admission HPI Per Admitting Provider Jaylyn Durán is a 47-year-old female with history of hyperlipidemia, low iron, migraines presenting with 1 day of substernal chest tightness and palpitations. Patient reports feeling intermittent palpitations in the past but they have never been very bothersome. Over the last several days she has had difficulty falling asleep. She also notes that her resting heart rate has been higher than usual (in the 70s to 90s rather than the 60s. This is per her wrist monitor). This morning 10/03/2022 patient woke from sleep with substernal chest discomfort. She also reports feeling more intense palpitations at that time. The chest tightness has occurred intermittently throughout the day. It is substernal with radiation through to her back. She has had occasional lightheadedness. No radiation to the arm or jaw. No shortness of breath, diaphoresis, nausea, syncope. Patient reports she is not very active at baseline. She walks in her neighborhood several times per week. She is able to climb stairs without difficulty. She denies exertional symptoms of chest pain or dyspnea. She has no known cardiac disease. No history of arrhythmia. She has never had a stress test or cardiac catheterization. In the ER she is afebrile, hemodynamically stable. Heart rate = 82, normal sinus ER course: Aspirin 324 mg GI cocktail ordered (not yet given) Tylenol 1 g ordered (not yet given) Principal Diagnosis palpitations negative cardiac work up insomnia Discharge Exam cardiac exam is regular lungs are clear Discharge Data Allergies Allergy/AdvReac Type Severity Reaction Status Date / Time No Known Allergies Allergy Unknown Verified 10/03/22 19:16 Consultations 10/03/22 22:32 ED Decision to Admit Stat Procedures Performed Echocardiogram performed 10/04/2022 is essentially normal with only grade 1 diastolic dysfunction but otherwise right-sided pressures normal left ventricular function normal no significant valvular abnormalities Ordered Studies Chest X-Ray 10/03/22 14:50 XR chest 1V not portable HISTORY: 47 years-old Female Chest pain, nonspecific acute chest pain with shortness of breath COMPARISON: Chest radiograph 02/02/2022 TECHNIQUE: AP view of the chest FINDINGS: Left breast biopsy clip. Cardiomediastinal and hilar silhouettes are within normal limits. No pneumothorax, pleural effusion, airspace consolidation or pulmonary edema. Bones appear grossly intact. IMPRESSION: No acute process. ACT 112: Negative or not required by law. The above report was generated using voice recognition software. It may contain grammatical, syntax or spelling errors. Electronically signed by: Jose Casanova M.D. 10/03/2022 5:35 PM Hospital Course (1) Chest pain: 47yo female with history of HLP presenting with substernal chest discomfort and palpitations. No known CAD or arrhythmia. Troponin x 2 unremarkable. EKG with no acute ischemic changes. Electrolytes within normal limits. TSH and Magnesium normal -Lyme disease negative -Check 2D echo in AM -GI Cocktail x 1 with relief of epigastric discomfort will prescribe Pepcid at discharge -Tylenol PRN pain Patient is insomnia we will use Seroquel as needed Patient is recommended to consider counseling or self counseling to help review some of the stressors in her life (2) Palpitations: Total Time Total Time Spent Total Time Spent (In Minutes): It required greater than 30 minutes to prepare this patient for discharge Discharge Plan Discharge Items Patient Disposition: Home - Self-Care Reason For Visit: PALPITATIONS, CHEST TIGHTNESS Discharge Diagnosis: Palpitations gastroesophageal joni Activity: Resume your previous activity Non-emergency contact: Primary Care Provider Call non-emergency contact if: your symptoms worsen Follow-up/Referrals: Sana Amato, [Primary Care Provider] - (PLEASE CALL YOUR PRIMARY CARE PROVIDER TO SCHEDULE A DISCHARGE FOLLOW-UP APPOINTMENT WITHIN 7-10 DAYS.) Diet: Regular Addtl Attending Provider Instructions: Please continue to work on your sleep hygene habits consider ways to unload your stressors take some over the counter pepcid, 20 mg daily for about 2 weeks try to avoid ibuprofen or aleve and use tylenol for pain, avoid oxycodone follow up with your family doctor try a short trial of sleep aid, usually only take if you have issues falling asleep, and do not take after midnight Pending Studies at Discharge: No Stand-Alone Forms: My [place], Smoking Cessation Medications and DC Order Prescriptions: New quetiapine [Seroquel] 25 mg tablet 25 mg PO HS PRN (Reason: insomnia) Qty: 10 0RF Continued acetaminophen [Tylenol] 325 mg capsule 325 mg PO .TAKE CAPSULE PRN PRN (Reason: Pain) vitamin B complex Tablet Extended Release 1 tab PO QAM ferrous sulfate 325 mg (65 mg iron) Tablet 325 mg PO QAM cholecalciferol (vitamin D3) [Vitamin D3] 25 mcg (1,000 unit) Tablet,Chewable 25 mcg PO QAM omega 0-epc-dyc-fish oil [Fish Oil] 1,000 mg (120 mg-180 mg) Capsule 1 cap PO QAM tamsulosin [Flomax] 0.4 mg capsule 0.4 mg PO DAILY Qty: 7 0RF oxybutynin chloride [Ditropan XL] 5 mg tablet extended release 24hr 5 mg PO DAILY Qty: 7 0RF buspirone 7.5 mg tablet 7.5 mg PO BID Discontinued ibuprofen [Advil] 200 mg tablet 200 mg PO QID PRN (Reason: Pain) oxycodone 5 mg tablet 5 mg PO Q6H PRN (Reason: pain) Qty: 10 0RF Discharge Orders: Discharge Order (Routine); Ordered 10/04/22 Ordered By: Rakesh Lea/Other Patient Handouts: What Is GERD?, Understanding Heart Palpitations Admission Data Admit Date/Time: 10/03/22 22:37 Attending Provider: Rakesh Alvarenga Admit Provider: Indu Chino Primary Care Provider: Sana Amato Other Providers: Indu Chino Other Interventions: Discharge Summary Assessment (RN) Last Done: 10/04/22 14:23 Coding Level of Care Code 13805 INP/OBS DISCH >30 MIN Diagnoses Chest pain R07.2 Chest pain type: precordial pain Palpitations R00.2
== END 2022-10-04 17:23 | disposition home or self-care (01) ==
LOC: ED 14:44 → 2N 14:44 → SUATTDRO 22:37 → 2N 10-04 01:11